=== PATIENT | female | born 1930 | race Caucasian/White ===

== ENCOUNTER 2019-01-06 10:18 | Emergency (ER) | payer MEDICARE, OTHER ==
[~2019-01-06] VITALS: Ht 157.5 cm; Wt 55.0 kg
[2019-01-06] MEDS ORDERED: MELOXICAM7.5 MG PO (10:27)
[2019-01-06] MEDS ORDERED: OMEPRAZOLE DR40 MG PO (10:29)
[2019-01-06] MEDS ORDERED: ZOCOR20 M1 PO (10:29)
[2019-01-06] MEDS ORDERED: EQ ASPIRIN ADUL81 MG PO (10:30)
[2019-01-06] MEDS ORDERED: MULTIVITAMIN WO1 TAB PO (10:31)
[2019-01-06] MEDS ORDERED: VITAMIN D35000 UNIT PO (10:32)
[2019-01-06] MEDS ORDERED: PRESERVISION AREDS 2 PO (10:33)
[2019-01-06 11:14] LABS: HEMOGLOBIN 13.2 g/dl (12.0-16.0); MEAN CELL VOLUME 95.3 fL CALC (80.0-100.0); MEAN CORPUSCULAR HGB 30.7 pG CALC (26.0-32.0); MEAN CORPUSCULAR HGB CONC 32.2 g/L CALC (32.0-36.0); NEUT# 1.67 thou/uL (2.00-7.15); RED BLOOD COUNT 4.3 mill/uL (4.20-5.60); RED CELL DISTRI WIDTH 12.3 % (11.5-15.5)
[2019-01-06 11:34] LABS: ALBUMIN 4.5 g/dL (3.2-5.0); ALKALINE PHOSPHATASE 39 u/l (38-126); ANION GAP 10 (6-22 (CALC)); BILIRUBIN, TOTAL 0.4 mg/dL (0.0-1.4); BUN 22 mg/dL (8-23); BUN/CREATININE RATIO 34 (12-20 (CALC)); CARBON DIOXIDE 31 mmol/l (22-30); CHLORIDE 104 mmol/l (95-108); CREATININE 0.7 mg/dL (0.5-1.0); GFR > 60 ML/MIN (>=60 (CALC)); GFR FOR AFR.AMER. > 60 ML/MIN (>=60 (CALC)); POTASSIUM 4.1 mmol/l (3.5-5.1); SGOT/AST 30 u/l (9-36); SODIUM 141 mmol/l (137-146); TOTAL PROTEIN 7.3 g/dL (6.3-8.2)
[2019-01-06 12:05] LABS: TSH, 3RD GENERATION 2.25 uIU/mL (0.47 - 4.68)
[2019-01-06 12:17] LABS: URINE BILIRUBIN - DIPSTICK NEGATIVE (NEGATIVE); URINE BLOOD DIPSTICK NEGATIVE (NEGATIVE); URINE COLOR YELLOW; URINE GLUCOSE - DIPSTICK NEGATIVE (NEGATIVE); URINE KETONE NEGATIVE (NEGATIVE); URINE LEUK ESTERASE NEGATIVE (NEGATIVE); URINE NITRITE - DIPSTICK NEGATIVE (Negative); URINE PH 6.5 (4.5-8.0); URINE PROTEIN - DIPSTICK NEGATIVE (NEG-TRACE); URINE SPECIFIC GRAVITY 1.025
[2019-01-06] MEDS ORDERED: CLONIDINE0.1 MG PO (12:28)
[2019-01-06 12:40] VITALS: BP 128/68
== END 2019-01-06 12:40 | disposition home or self-care (01) ==
LOC: ED 10:18
PROVIDERS: Family Medicine
DX: I10 Essential (primary) hypertension (principal)

== ENCOUNTER 2019-01-08 09:23 | Day surgery (SDC) | payer MEDICARE, OTHER ==
[~2019-01-08 09:23] MED LIST: CLONIDINE0.1 MG PO; EQ ASPIRIN ADUL81 MG PO; MELOXICAM7.5 MG PO; MULTIVITAMIN WO1 TAB PO; OMEPRAZOLE DR40 MG PO; PRESERVISION AREDS 2 PO; VITAMIN D35000 UNIT PO; ZOCOR20 M1 PO
[2019-01-08 12:19] VITALS: BP 174/82
== END 2019-01-08 12:12 | disposition home or self-care (01) ==
LOC: ENDO 09:23 → ORM 10:15 → ENDO 12:12 → ORM 12:15
PROVIDERS: ATTEND Internal Medicine Gastroenterology
PROC: 0DB78ZX Excision of Stomach, Pylorus, Via Natural or Artificial Opening Endoscopic, Diagnostic (ICD-10-PCS; principal; 2019-01-08)
DX: K29.50 Unspecified chronic gastritis without bleeding (principal); K22.2 Esophageal obstruction; K44.9 Diaphragmatic hernia without obstruction or gangrene; K21.9 Gastro-esophageal reflux disease without esophagitis; Z79.899 Other long term (current) drug therapy